=== PATIENT | female | born 1960 | race Caucasian/White ===

== ENCOUNTER → 2025-08-11 | Outpatient (CLI) | payer BC ==
[~2025-08-11] MED LIST: ALLE4TAB11 PO; AZO1CAP PO; BUSP5TA PO; CETI10CA2 PO; CYAN1000VL IM; ERGO125013 PO; ESTR62CR TOP; FLUT15.820 NARES; LEVA1.2526 INH; LEVA45AE INH; LOSA25TA13 PO; METO1TAB32 PO; MONT10TA97 PO; PANT40TA29 PO; PROBCAP14 PO; QVAR80AE8 INH; ROSU5TAB49 PO; SOOT1DRO OP; bio cleanse
== END ==
LOC: M RAD 14:15
PROVIDERS: ATTEND Nurse Practitioner Adult Health
DX: Z12.2 Encounter for screening for malignant neoplasm of respiratory organs (principal); R91.1 Solitary pulmonary nodule; Z87.891 Personal history of nicotine dependence